=== PATIENT | male | born 1965 | race Caucasian/White ===

== ENCOUNTER → 2020-06-10 | Outpatient (CLI) | payer BC ==
[~2020-06-10] MED LIST: BACTROBAN OINT22 GM EXT; KEFLEX CAP 500500 MG PO
== END ==
LOC: KOH-I 10:03
DX: R10.84 Generalized abdominal pain (principal); R07.9 Chest pain, unspecified
CPT/HCPCS: 71046; 76700

== ENCOUNTER 2021-12-17 14:32 | Emergency (ER) | payer OTHER ==
[2021-12-17] MEDS ORDERED: CEPHALEXIN500 M1 PO (15:18)
== END 2021-12-17 15:38 | disposition home or self-care (01) ==
LOC: ER1 14:32
DX: S61.411A Laceration without foreign body of right hand, initial encounter (principal); K21.9 Gastro-esophageal reflux disease without esophagitis; Z86.19 Personal history of other infectious and parasitic diseases; W45.8XXA Other foreign body or object entering through skin, initial encounter
CPT/HCPCS: 12002; 73130; 90715; 99283